=== PATIENT | female | born 1975 | race Caucasian/White ===

== ENCOUNTER → 2024-08-31 | Outpatient (CLI) | payer MEDICAID, SELFPAY ==
--- NOTE | 2024-08-31 11:00 | XR_ITS ---
Examination: Screening digital mammography, bilateral Computer aided detection 3-D breast Tomosynthesis, bilateral Date and time of exam: August 31, 2024 1122 hours Compared to mammograms dating to August 30, 2019 Indication: Screening Technique: Nonmagnified MLO, CC views of the breasts to been obtained, reconstructed from 3-D Tomosynthesis images. R2 computer aided detection program utilized for evaluation of suspicious masses and/or abnormal calcifications. 3-D Tomosynthesis images obtained. Findings: Scattered areas of fibroglandular density. Benign calcifications. 4 mm circumscribed nodule upper outer right breast IMPRESSION: BI-RADS Category 0: Incomplete: Need additional imaging evaluation 4 mm circumscribed nodule upper outer right breast, recommend follow-up spot tomographic views of this nodule as well as right breast sonography to evaluate the workup
== END | disposition home or self-care (01) ==
LOC: CDIM 10:59
PROVIDERS: Referring Provider Nurse Practitioner; Visit Provider Nurse Practitioner
DX: Z12.31 Encounter for screening mammogram for malignant neoplasm of breast (principal); N63.11 Unspecified lump in the right breast, upper outer quadrant
CPT/HCPCS: 77063; 77067

== ENCOUNTER 2024-09-24 19:55 | Emergency (ER) | payer MEDICAID, SELFPAY ==
[2024-09-24 19:55] VITALS: BMI 39.1
[2024-09-24 20:55] VITALS: BP 126/78; PULSE 72; RESP 18; TEMP 36.9; O2SAT 98
--- NOTE | 2024-09-24 21:05 | PD.EDRME ---
Rapid Medical Screening Exam RME Arrival date/time: 09/24/24 19:55 48 year old female present to ED for c/o of abdominal pain radiated to back I have greeted and performed a focused initial assessment of this patient. A comprehensive ED assessment and evaluation of the patient, analysis of all test results, and completion of the medical decision making process will be conducted by additional ED providers. Chief Complaint: Abdominal Pain Time Seen by Provider: 09/24/24 20:01 Vital signs: Vital Signs Temperature 98.5 F 09/24/24 20:55 Pulse Rate 72 09/24/24 20:55 Respiratory Rate 18 09/24/24 20:55 Blood Pressure 126/78 09/24/24 20:55 Pulse Oximetry (%) 98 09/24/24 20:55 Oxygen Delivery Method Room Air 09/24/24 20:55
[2024-09-24 21:35] LABS: Basophils # (Auto) 0.1 Thou/mm3 (0.0-0.2); Basophils % (Auto) 1 % (0-2.5); Eosinophils # (Auto) 0.4 Thou/mm3 (0.0-0.5); Eosinophils % (Auto) 3 % (0-10); Hematocrit 40.1 % (36.0-46.0); Hemoglobin 13.7 g/dL (12.0-16.0); Immature Granulocytes % (Auto) 1 % (0-0); Immature Granulocytes Auto 0.07 Thou/mm3 (0.00-0.00); Lymphocytes # (Auto) 2.5 Thou/mm3 (1.0-4.8); Lymphocytes % (Auto) 19 % (10-50); Mean Corpuscular HGB Conc 34.2 g/dl (31.0-37.0); Mean Corpuscular Hemoglobin 30.1 pg (25.0-35.0); Mean Corpuscular Volume 88 fL (80-100); Monocytes # (Auto) 0.5 Thou/mm3 (0.0-0.8); Monocytes % (Auto) 4 % (0-12); Neutrophils # (Auto) 9.9 Thou/mm3 (1.8-7.7); Neutrophils % (Auto) 73 % (37-80); Nucleated Red Blood Cell % 0 /100 WBC (0); Platelet Count 199 Thou/mm3 (140-440); RDW Standard Deviation 41.9 fL (36.4-46.3); Red Blood Count 4.55 Miln/mm3 (4.00-5.20); White Blood Count 13.5 Thou/mm3 (3.6-11.0)
--- NOTE | 2024-09-24 21:44 | XR_ITS ---
Examination: CT abdomen and pelvis without contrast. Coronal 3-D reconstructions. Sagittal 2-D reconstructions. Date and time of exam:September 24, 1999 2510.4 hours Indications: Left lower abdominal pain beginning one month ago CTDI: vol (mGy): 14.7 DLP: (mGycm): 853 Technique: Axial images of the abdomen have been obtained, 3 mm slice thickness Intravenous contrast material has not been administered. Low dose protocols were performed. One or more of the following dose reduction techniques were used; automated exposure control, adjustment of the mA and/or KV according to patient size, use of iterative reconstruction technique. Findings: Moderate hepatomegaly with fatty infiltration Mild splenomegaly No gallstones No pancreatic mass Mild bilateral renal parenchymal scar formation Normal appendix No bowel obstruction No diverticulitis No uterine or adnexal mass Contracted urinary bladder Moderate osteopenia Impression: Hepatosplenomegaly, fatty liver Mild bilateral renal parenchymal scar formation No renal or ureteral calculi, no hydronephrosis Normal appendix No diverticulitis or bowel obstruction
[2024-09-24 21:52] LABS: Alanine Aminotransferase 38 U/L (10-49); Albumin, Serum 4.6 gm/dL (3.5-5.0); Albumin/Globulin Ratio 1.6 (1.2-2.2); Alkaline Phosphatase 72 U/L (46-116); Anion Gap 8 (7-16); Aspartate Amino Transferase 26 U/L (0-34); BUN/Creatinine Ratio 9 Ratio (12-20); Bilirubin,Total 0.5 mg/dL (0.3-1.2); Blood Urea Nitrogen 7 mg/dL (9-23); Calcium 9.7 mg/dL (8.3-10.6); Calcium (Corrected) 9.7 mg/dL (8.5-10.1); Carbon Dioxide 27.6 mMol/L (20.0-31.0); Chloride 104 mMol/L (98-107); Creatinine (Component) 0.8 mg/dL (0.6-1.3); Estimated Creatinine Clearance 91.9 mL/min (>60); Globulin 2.9 gm/dL (2.3-3.5); Glucose 174 mg/dL (74-106); Lipase 58 U/L (12-53); Osmolality,Calculated 281 (275-295); Potassium 3.7 mMol/L (3.4-5.1); Sodium 140 mMol/L (136-145); Total Protein 7.5 gm/dL (5.7-8.2); eGFR > 60 See Note
[2024-09-24 22:00] LABS: HCG,Qualitative Serum Negative
[2024-09-24 22:25] LABS: Collection Type, Urine Voided; RBC,Urine 0 /hpf (0-3); WBC,Urine 0 /hpf (0-5)
[2024-09-24 22:43] LABS: Bilirubin,Urine Negative (Negative); Blood,Urine Negative (Negative); Clarity,Urine Clear (Clear/Hazy); Color,Urine Lt-Yellow (Lt Yel-Yel); Glucose, Urine 4+ (Negative); Ketones,Urine Negative (Negative); Leukocyte Esterase,Urine Negative (Negative); Nitrite,Urine Negative (Negative); Protein,Urine Trace (Neg - Trace); Specific Gravity,Urine 1.035 (1.001-1.035); Squamous Epithelial Cell,Urine 1 /hpf (0-5); Urobilinogen,Urine Negative mg/dL (0.0-1.0)
--- NOTE | 2024-09-24 22:57 | EDNOTE_ITS ---
ED Abdominal Pain RME/HPI General Chief Complaint: Abdominal Pain Stated complaint: LEFT ABDOMINAL PAIN Time seen by provider: 09/24/24 20:01 Arrival date/time: 09/24/24 19:55 48 year old female present to emergency room with c/o of LLQ pain that radiated to back for 1 month ago LOCATION: [facility] SEVERITY: Symptoms are described as being severe with limitations on activities of daily living QUALITY: Symptoms are described as being cramping CONTEXT: The patient is unable to identify any inciting events. DURATION/TIMING: The symptoms started approximately 1 month ago and have been waxing/waning but always present without ever completely resolving. ASSOCIATED SYMPTOMS: The patient is unable to identify any other associated symptoms. MODIFYING FACTORS: The patient is unable to identify any alleviating or aggravating symptoms. PERTINENT ROS: no fevers, no anorexia, no nausea or vomiting, no diarrhea, no ripping or tearing sensations, no syncope or presyncopal symptoms, denies trauma, denies genital pain no urgency,frequency, dysuria, vag bleeding REVIEW OF SYSTEMS: See History of Present Illness - with the exception of those mentioned in the history of present illness, all other systems reviewed and reported as negative GENERAL: In general the patient is awake, interactive, in an emergency department gurney. HEAD/EYES/EARS/NOSE/THROAT: normo-cephalic, atraumatic, mucus membranes are moist, anicteric, palpebral conjunctiva is pink, trachea is midline. CARDIOVASCULAR: regular rate and regular rhythm, no murmurs, heart sounds are not distant, strong pulses in all four extremities that are equal and symmetric bilateral upper and lower extremities, normal capillary refill. CHEST/PULMONARY: normal chest rise and fall, good air movement, clear to auscultation bilaterally, normal inspiratory to expiratory ratios without evidence of respiratory distress. NECK: No midline/Paraspinal tenderness, no step off ROM/Strenght intact No Kernig and bruzinski sign. No trauma ABDOMEN: soft, LLQ tenderness, no cva tenderness no masses appreciated BACK: normal range of motion without pain. NEUROLOGICAL: cranio-facial features are symmetric, moves all four extremities equally without obvious limitations or weakness. EXTREMITY: no tenderness to palpation over the long bones or large joints of the bilateral upper and lower extremities, no joint swelling, no joint erythema, no signs of trauma, no unilateral leg swelling and no peripheral edema. SKIN: warm, dry, well-perfused, no jaundice, no rash, no telangiectasias or petechia. PSYCH: calm, cooperative, no evidence of psychosis or agitation RME / HPI RME / HPI narrative: 09/24/24 19:55 48 year old female present to ED for c/o of abdominal pain radiated to back I have greeted and performed a focused initial assessment of this patient. A comprehensive ED assessment and evaluation of the patient, analysis of all test results, and completion of the medical decision making process will be conducted by additional ED providers. Related Data Home Medications ?Medication ?Instructions ?Recorded ?Confirmed aripiprazole 30 mg tablet (Abilify) 20 mg PO HS #0 tabs 08/06/17 09/28/20 lithium carbonate 300 mg capsule 900 mg PO HS 04/12/18 09/28/20 sitagliptin phosphate 100 mg 100 mg PO QDAY 04/24/18 09/28/20 tablet (Januvia) simvastatin 20 mg tablet 20 mg PO QPM 02/24/20 09/28/20 aripiprazole 10 mg tablet (Abilify) 10 mg PO QDAY 07/26/20 09/28/20 insulin glargine 100 unit/mL (3 34 unit subcut BID 07/26/20 09/28/20 mL) subcutaneous pen (Basaglar KwikPen U-100 Insulin) empagliflozin 25 mg tablet 25 mg PO QDAY 09/28/20 09/28/20 (Jardiance) insulin lispro 100 unit/mL 5 unit subcut TID 09/28/20 09/28/20 subcutaneous pen (Humalog KwikPen (U-100) Insulin) mirtazapine 15 mg tablet 15 mg PO QDAY 09/28/20 09/28/20 Previous Rx's ?Medication ?Instructions ?Recorded cephalexin 500 mg capsule (Keflex) 500 mg PO TID #14 caps 10/01/20 hydrocodone 10 mg-acetaminophen 1 tab PO Q6H PRN pain #30 tabs 10/01/20 325 mg tablet ([place]) Allergies Allergy/AdvReac Type Severity Reaction Status Date / Time albuterol Allergy Severe Anaphylaxis Verified 10/01/20 13:12 aspirin Allergy Severe Nose Bleed Verified 10/01/20 13:12 ibuprofen Allergy Severe Nose Bleed Verified 10/01/20 13:12 Course Course Course Narrative: Patient?s symptoms not typical for emergent causes of abdominal pain such as, but not limited to, appendicitis, abdominal aortic aneurysm, surgical biliary disease, pancreatitis, SBO, mesenteric ischemia, serious intra-abdominal bacterial illness. Presentation also not typical of gynecologic emergencies such as?TOA, Ovarian Torsion, PID. Not Ectopic. Doubt atypical ACS. Pt tolerating PO. Disposition: Patient will be discharged with strict return precautions and follow up with primary MD within 12-24 hours for further evaluation. Patient understands that this still may have an early presentation of an emergent medical condition such as appendicitis that will require a recheck. Quality Measures none Orders Category Date Time Status CT abdomen pelvis wo con Stat Exams 09/24/24 21:44 Completed CBC Stat Lab 09/24/24 21:17 Completed CMP [Comprehensive Metabolic Panel] Stat Lab 09/24/24 21:17 Completed HCG,Qualitative Serum Stat Lab 09/24/24 21:17 Completed Lipase Stat Lab 09/24/24 21:17 Completed UA [Urinalysis] Stat Lab 09/24/24 22:05 Completed traMADol HCL [Ultram] Med 09/24/24 23:00 Discontinued 50 mg PO X1 ONE Vital Signs Vital signs: Vital Signs Temperature 98.5 F 09/24/24 20:55 Pulse Rate 72 09/24/24 20:55 Respiratory Rate 18 09/24/24 20:55 Blood Pressure 126/78 09/24/24 20:55 Pulse Oximetry (%) 98 09/24/24 20:55 Oxygen Delivery Method Room Air 09/24/24 20:55 Abdominal Pain MDM Patient data External records reviewed:: [facility] previous records Clinical information provided by:: patient Social determinants that could affect healthcare access:: none Patient has the following chronic illnesses:: none How is presenting disease/condition affected by chronic disease/condition?: no chronic disease Evaluation data The following diagnostics were reviewed and interpreted by me:: lab results and radiology exam(s) Lab and/or radiology exams considered but not ordered:: none Interpretation Summary: Impression: Hepatosplenomegaly, fatty liver Mild bilateral renal parenchymal scar formation No renal or ureteral calculi, no hydronephrosis Normal appendix No diverticulitis or bowel obstruction CBC/CMP/URINE no acute findings Medications / Prescriptions Medications or Prescriptions considered but not ordered:: none Medication administrations:: Medication Administration History Discontinued Medications Tramadol HCl (Tramadol Hcl 50 Mg Tablet) 50 mg PO X1 ONE Stop: 09/24/24 23:01 none Consultations Consultation(s) initiated? (list below): No Diagnosis Differential diagnosis abdominal pain: abdominal pain, acute appendicitis, calc ulus of kidney, constipation, diverticulitis, gastroenteritis, pancreatitis and small bowel obstruction Most likely diagnosis given after review of the tests above:: abd pain Admission Indicated Admission indicated?: not indicated Admission Request Was there a request for admission?: No Disposition Plan Disposition Plan: Discharge Discharge Attestation Discharge Attestation: The patient and all family members were given an opportunity to ask questions and understood the discharge instructions. Discharge instructions specifically effects, indications for sooner follow up or return to the emergency department, and the expected course of current diagnosis. Patient condition: Stable Discharge Plan Plan Patient Disposition: HOME (Self Care) Health Concerns: Follow with PMD as directed Take tylenol as need Return to ED if sx worsen Prescriptions/Referrals Prescriptions/Med Rec: No Action aripiprazole [Abilify] 30 MG tablet 20 mg PO HS Qty: 0 lithium carbonate 300 mg Capsule 900 mg PO HS mirtazapine 15 mg Tablet 15 mg PO QDAY Jardiance 25 mg Tablet 25 mg PO QDAY insulin lispro [Humalog KwikPen Insulin] 100 unit/mL Insulin Pen 5 unit SUBCUT TID hydrocodone-acetaminophen [[place]] 10-325 mg tablet 1 tab PO Q6H MDD 3 PRN (Reason: pain) Qty: 30 0RF cephalexin [Keflex] 500 mg capsule 500 mg PO TID Qty: 14 0RF Januvia 100 mg Tablet 100 mg PO QDAY simvastatin 20 mg Tablet 20 mg PO QPM aripiprazole [Abilify] 10 mg Tablet 10 mg PO QDAY Basaglar KwikPen U-100 Insulin 100 unit/mL (3 mL) Insulin Pen 34 unit SUBCUT BID Referrals: Shree Vazquez([facility])MD [Primary Care Provider] - In 1 week Problem List Clinical Impression: Abdominal pain Patient/Caregiver Discharge Instructions Education Materials: Abdominal Pain Print Language: Turkish Stand Alone Forms: Tiff Award Info., Patient Portal Info Letter
[2024-09-24] MEDS: traMADol HCL 50 MG TABLET PO (23:59)
[2024-09-25 00:14] VITALS: BP 121/83; PULSE 70; RESP 16; TEMP 36.8; O2SAT 98
== END 2024-09-25 00:15 | disposition home or self-care (01) ==
PROVIDERS: Physician Assistant; Emergency Provider Emergency Medicine; PCP Family Medicine
DX: R10.32 Left lower quadrant pain (principal)
CPT/HCPCS: 36415; 74176; 80053; 81001; 83690; 84703; 85025; 99284; A9270

== ENCOUNTER 2024-09-26 13:15 | Emergency (ER) | payer MEDICAID, SELFPAY ==
[2024-09-26 13:27] VITALS: BP 118/76; PULSE 72; RESP 16; TEMP 36.8; O2SAT 97; BMI 39.4
--- NOTE | 2024-09-26 13:37 | XR_ITS ---
Examination: CT abdomen and pelvis without contrast. Coronal 3-D reconstructions. Sagittal 2-D reconstructions. Date and time of exam:September 26, 2024 1516 hours COMPARISON: September 24, 2024 INDICATIONS: Left-sided flank pain radiating to the back beginning 3 days ago CTDI: vol (mGy): 12.8 DLP: (mGycm): 766 Technique: Axial images of the abdomen have been obtained, 3 mm slice thickness Intravenous contrast material has not been administered. Low dose protocols were performed. One or more of the following dose reduction techniques were used; automated exposure control, adjustment of the mA and/or KV according to patient size, use of iterative reconstruction technique. Findings: No focal liver or splenic lesions Hepatomegaly 23 cm, splenomegaly AP dimension 14 cm No gallstones No pancreatic mass Moderate bilateral renal parenchymal scar formation No renal or ureteral calculi, no hydronephrosis Mild edema in the mesentery Aorta normal size No pericecal inflammatory change No bowel obstruction No diverticulitis Urinary bladder intact Anteverted uterus Moderate osteopenia IMPRESSION: Significant hepatosplenomegaly Moderate bilateral renal parenchymal scar formation No renal or ureteral calculi Mild edema in the mesentery fat, a nonspecific finding
--- NOTE | 2024-09-26 13:38 | PD.EDABDPN ---
ED Abdominal Pain RME/HPI General Chief Complaint: Abdominal Pain Stated complaint: LEFT SIDED ABD PAIN RAD TO BACK, WEAKNESS Time seen by provider: 09/26/24 13:46 Arrival date/time: 09/26/24 13:15 48-year-old female with a history of type 2 diabetes, hypertension, hyperlipidemia presents to the emergency room with a chief complaint of left-sided flank pain and left-sided lower abdominal pain x 2 days. Source: patient Mode of arrival: ambulatory Limitations: no limitations Related Data Home Medications ?Medication ?Instructions ?Recorded ?Confirmed aripiprazole 30 mg tablet (Abilify) 20 mg PO HS #0 tabs 08/06/17 09/28/20 lithium carbonate 300 mg capsule 900 mg PO HS 04/12/18 09/28/20 sitagliptin phosphate 100 mg 100 mg PO QDAY 04/24/18 09/28/20 tablet (Januvia) simvastatin 20 mg tablet 20 mg PO QPM 02/24/20 09/28/20 aripiprazole 10 mg tablet (Abilify) 10 mg PO QDAY 07/26/20 09/28/20 insulin glargine 100 unit/mL (3 34 unit subcut BID 07/26/20 09/28/20 mL) subcutaneous pen (Basaglar KwikPen U-100 Insulin) empagliflozin 25 mg tablet 25 mg PO QDAY 09/28/20 09/28/20 (Jardiance) insulin lispro 100 unit/mL 5 unit subcut TID 09/28/20 09/28/20 subcutaneous pen (Humalog KwikPen (U-100) Insulin) mirtazapine 15 mg tablet 15 mg PO QDAY 09/28/20 09/28/20 Previous Rx's ?Medication ?Instructions ?Recorded cephalexin 500 mg capsule (Keflex) 500 mg PO TID #14 caps 10/01/20 hydrocodone 10 mg-acetaminophen 1 tab PO Q6H PRN pain #30 tabs 10/01/20 325 mg tablet (Millinocket) Allergies Allergy/AdvReac Type Severity Reaction Status Date / Time albuterol Allergy Severe Anaphylaxis Verified 10/01/20 13:12 aspirin Allergy Severe Nose Bleed Verified 10/01/20 13:12 ibuprofen Allergy Severe Nose Bleed Verified 10/01/20 13:12 Review of Systems Review of Systems Systems Reviewed: All systems reviewed, normal except as documented Constitutional Constitutional: Reports system reviewed and no additional complaints, except as documented, Denies fatigue, Denies fever(s), Denies headache(s) and Denies weakness Eyes Eyes: Reports system reviewed and no additional complaints, except as documented, Denies blurry vision and Denies change in vision ENT Ears, Nose, Mouth, and Throat: Reports system reviewed and no additional complaints, except as documented, Denies otalgia, Denies headache(s), Denies nasal congestion, Denies throat swelling and Denies vertigo Cardiovascular Cardiovascular: Reports system reviewed and no additional complaints, except as documented, Denies chest pain, Denies dyspnea and Denies dyspnea on exertion Respiratory Respiratory: Reports system reviewed and no additional complaints, except as documented, Denies chest congestion, Denies cough, Denies dyspnea, Denies dyspnea on exertion and Denies wheezing Gastrointestinal Gastrointestinal: Reports system reviewed and no additional complaints, except as documented, Reports abdominal pain, Reports cramping, Denies nausea and Denies vomiting Genitourinary Genitourinary: Reports system reviewed and no additional complaints, except as documented Musculoskeletal Musculoskeletal: Reports system reviewed and no additional complaints, except as documented, Reports arthralgias and Reports back pain Integumentary/Breasts Skin/Breast: Reports system reviewed and no additional complaints, except as documented and Denies wounds Neurologic Neurologic: Reports system reviewed and no additional complaints, except as documented, Denies confusion, Denies headache(s), Denies lack of coordination, Denies vertigo and Denies weakness Psychiatric Psychiatric: Reports system reviewed and no additional complaints, except as documented, Denies anxiety, Denies confusion, Denies depression, Denies paranoia, Denies suicidal ideation and Denies tactile hallucinations Endocrine Endocrine: Reports system reviewed and no additional complaints, except as documented and Denies fatigue Hematologic/Lymphatic Hematologic/Lymphatic: Reports system reviewed and no additional complaints, except as documented and Denies lymphadenopathy Allergic/Immunologic Allergic/Immunologic: Reports system reviewed and no additional complaints, except as documented, Denies throat swelling, Denies urticaria and Denies wheezing Past Medical History Past Medical History NEUROLOGIC: Negative Neurological Disorders or Seizures CARDIAC: Positive Cardiac Disorders and Hypercholesterolemia; Negative Congestive Heart Failure, Edema, Cellulitis or Varicose Veins RESPIRATORY: Negative Chronic Obstructive Pulmonary Disease (COPD), Asthma, Tuberculosis, Pulmonary Embolism or Sleep Apnea GASTROINTESTINAL: Positive Hiatal Hernia; Negative Gastrointestinal Disorders or Hepatitis GENITOURINARY: Negative Genitourinary Disorders or Renal Disease REPRODUCTIVE: Positive Previous Pregnancies MUSCULOSKELETAL: Negative Musculoskeletal Disorders ENDOCRINE: Positive Endocrine Disorders and Diabetes Mellitus Type 2; Negative Diabetes Mellitus Type 1 HEMATOLOGIC: Negative Blood Disorders or Sickle Cell Disease PSYCHO/SOCIAL: Positive Bipolar Disorder, Depression, Anxiety, Depression and Post Traumatic Stress Disorder OTHER HISTORY: Positive Autoimmune Disease, Chicken Pox and Measles; Negative Hospitalization, Shingles, Falls, Blood Transfusions, Blood Transfusion Reaction, Anesthesia Reactions, Chemotherapy, Radiation Therapy, MRSA, Mumps or Cancer Family History FAMILY HISTORY: Positive Family Respiratory Disorders, Family Cardiac Disorders, Family Gastrointestinal Problems, Family Cancer and Family Surgery; Negative Family Psychiatric Problems or Family Anesthesia Reaction Surgical History SURGICAL: Positive Section; Negative Cardiac Surgery, Pacemaker or Tubal Ligation Social History SMOKING STATUS: Never smoker SUBSTANCE USE: does not use ED Exam General Limitations: Present no limitations General appearance: Present alert and in no apparent distress Head Head exam: Present atraumatic Eye Eye exam: Present normal appearance, PERRL and EOMI ENT ENT exam: Present normal exam, normal oropharynx and mucous membranes moist Neck Neck exam: Present normal inspection, full ROM and trachea midline Chest Chest inspection: Present normal inspection and symmetric chest wall rise Respiratory Respiratory exam: Present normal lung sounds bilaterally Cardiovascular Cardiovascular exam: Present regular rate, normal rhythm and normal heart sounds Abdominal Exam Abdominal exam: Present soft, tenderness and normal bowel sounds Abdominal tenderness: Present LLQ and mild Extremities Exam Extremities exam: Present normal inspection and full ROM Back Exam Back exam: Present normal inspection, full ROM and CVA tenderness (L) Neurological Exam Neurological exam: Present alert, oriented X3 and CN II-XII intact Psychiatric Psychiatric exam: Present normal affect and normal mood Skin Skin exam: Present warm, dry, intact and normal color Course Quality Measures none Orders Category Date Time Status CT abdomen pelvis wo con Stat Exams 09/26/24 13:37 Completed CBC Stat Lab 09/26/24 13:46 Completed CMP [Comprehensive Metabolic Panel] Stat Lab 09/26/24 13:46 Completed HCG Qualitative,Urine Stat Lab 09/26/24 13:55 Completed Lipase Stat Lab 09/26/24 13:46 Completed UA [Urinalysis] Stat Lab 09/26/24 13:55 Completed Urine Culture Stat Lab 09/26/24 13:55 Received HYDROcodone*/APAP 5/325 [[place] 5/325] Med 09/26/24 13:37 Discontinued 1 tab PO X1 ONE Vital Signs Vital signs: Vital Signs Temperature 98.3 F 09/26/24 13:27 Pulse Rate 72 09/26/24 13:27 Respiratory Rate 16 09/26/24 13:27 Blood Pressure 118/76 09/26/24 13:27 Pulse Oximetry (%) 97 09/26/24 13:27 Oxygen Delivery Method Room Air 09/26/24 13:27 O2 saturation 97% within normal limits Abdominal Pain MDM MDM Narrative MDM Narrative:: 48-year-old female with a history of type 2 diabetes, hypertension, hyperlipidemia presents to the emergency room with a chief complaint of left-sided flank pain and left-sided lower abdominal pain x 2 days. Clinically the patient appears nontoxic and in no apparent distress. Physical examination shows left-sided CVA tenderness as well as left-sided lower abdominal pain and tenderness. CT of the abdomen and pelvis was completed and was negative for any acute findings. CBC CMP were negative for leukocytosis or any acute findings. Urinalysis was normal. Patient was discharged and educated to follow-up with her primary care provider and return to the emergency room for any evidence of worsening signs or symptoms Patient data External records reviewed:: [facility] previous records Clinical information provided by:: patient Social determinants that could affect healthcare access:: none Patient has the following chronic illnesses:: No chronic illness How is presenting disease/condition affected by chronic disease/condition?: no chronic disease Evaluation data The following diagnostics were reviewed and interpreted by me:: lab results and radiology exam(s) Lab and/or radiology exams considered but not ordered:: Labs and radiology exams considered and ordered Interpretation Summary: CT abdomen and pelvis-Findings: No focal liver or splenic lesions Hepatomegaly 23 cm, splenomegaly AP dimension 14 cm No gallstones No pancreatic mass Moderate bilateral renal parenchymal scar formation No renal or ureteral calculi, no hydronephrosis Mild edema in the mesentery Aorta normal size No pericecal inflammatory change No bowel obstruction No diverticulitis Urinary bladder intact Anteverted uterus Moderate osteopenia IMPRESSION: Significant hepatosplenomegaly Moderate bilateral renal parenchymal scar formation No renal or ureteral calculi Mild edema in the mesentery fat, a nonspecific finding Medications / Prescriptions Medications or Prescriptions considered but not ordered:: Medication given Medication administrations:: Medication Administration History Discontinued Medications Hydrocodone Bitart/Acetaminophen (Hydrocodone/Apap 5/325 Tablet) 1 tab PO X1 ONE Stop: 09/26/24 13:38 Last Admin: 09/26/24 14:11 Dose: 1 tab Documented By: Medication given Consultations Consultation(s) initiated? (list below): No Diagnosis Differential diagnosis abdominal pain: abdominal pain, calculus of kidney, diverticulitis, gastroenteritis and other (Left-sided flank pain) Most likely diagnosis given after review of the tests above:: Flank pain Admission Indicated Admission indicated?: not indicated Admission Request Was there a request for admission?: No Disposition Plan Disposition Plan: Discharge Discharge Attestation Discharge Attestation: The patient and all family members were given an opportunity to ask questions and understood the discharge instructions. Discharge instructions specifically effects, indications for sooner follow up or return to the emergency department, and the expected course of current diagnosis. Patient condition: Stable Discharge Plan Plan Patient Disposition: HOME (Self Care) Disposition Comment: Stable Prescriptions/Referrals Prescriptions/Med Rec: No Action aripiprazole [Abilify] 30 MG tablet 20 mg PO HS Qty: 0 lithium carbonate 300 mg Capsule 900 mg PO HS mirtazapine 15 mg Tablet 15 mg PO QDAY Jardiance 25 mg Tablet 25 mg PO QDAY insulin lispro [Humalog KwikPen Insulin] 100 unit/mL Insulin Pen 5 unit SUBCUT TID hydrocodone-acetaminophen [[place]] 10-325 mg tablet 1 tab PO Q6H MDD 3 PRN (Reason: pain) Qty: 30 0RF cephalexin [Keflex] 500 mg capsule 500 mg PO TID Qty: 14 0RF Januvia 100 mg Tablet 100 mg PO QDAY simvastatin 20 mg Tablet 20 mg PO QPM aripiprazole [Abilify] 10 mg Tablet 10 mg PO QDAY Basaglar KwikPen U-100 Insulin 100 unit/mL (3 mL) Insulin Pen 34 unit SUBCUT BID Referrals: Toña Villegas FNP [Primary Care Provider] - In 1 week Problem List Clinical Impression: Acute flank pain Patient/Caregiver Discharge Instructions Education Materials: ED Flank Pain, Uncertain Cause Additional Instructions: Please follow-up with your primary care provider in the next [address] of your abdomen and pelvis was completed today and was negative for any stones or acute findings. For any evidence of worsening signs or symptoms please return to the emergency room immediately Print Language: Czech Stand Alone Forms: Tiff Award Info., Patient Portal Info Letter SIENNA/GAS TRANSFER OPERATOR Supervising Physician PA/GAS TRANSFER OPERATOR Supervising Physician: Dr Mckenna
[2024-09-26 13:56] LABS: Basophils # (Auto) 0.1 Thou/mm3 (0.0-0.2); Basophils % (Auto) 1 % (0-2.5); Eosinophils # (Auto) 0.4 Thou/mm3 (0.0-0.5); Eosinophils % (Auto) 3 % (0-10); Hematocrit 38.6 % (36.0-46.0); Hemoglobin 13.1 g/dL (12.0-16.0); Immature Granulocytes % (Auto) 0 % (0-0); Immature Granulocytes Auto 0.05 Thou/mm3 (0.00-0.00); Lymphocytes # (Auto) 2.3 Thou/mm3 (1.0-4.8); Lymphocytes % (Auto) 19 % (10-50); Mean Corpuscular HGB Conc 33.9 g/dl (31.0-37.0); Mean Corpuscular Hemoglobin 30.1 pg (25.0-35.0); Mean Corpuscular Volume 89 fL (80-100); Monocytes # (Auto) 0.5 Thou/mm3 (0.0-0.8); Monocytes % (Auto) 4 % (0-12); Neutrophils % (Auto) 73 % (37-80); Nucleated Red Blood Cell % 0 /100 WBC (0); Platelet Count 195 Thou/mm3 (140-440); RDW Standard Deviation 42.6 fL (36.4-46.3); Red Blood Count 4.35 Miln/mm3 (4.00-5.20); White Blood Count 12.3 Thou/mm3 (3.6-11.0)
[2024-09-26] MEDS: HYDROcodone/APAP 5/325 TABLET 1 TAB PO (14:11)
[2024-09-26 14:27] LABS: Alanine Aminotransferase 39 U/L (10-49); Albumin, Serum 4.5 gm/dL (3.5-5.0); Albumin/Globulin Ratio 1.8 (1.2-2.2); Alkaline Phosphatase 63 U/L (46-116); Anion Gap 8 (7-16); Aspartate Amino Transferase 29 U/L (0-34); BUN/Creatinine Ratio 10 Ratio (12-20); Bilirubin,Total 0.4 mg/dL (0.3-1.2); Blood Urea Nitrogen 8 mg/dL (9-23); Calcium 9.7 mg/dL (8.3-10.6); Calcium (Corrected) 9.7 mg/dL (8.5-10.1); Carbon Dioxide 28.1 mMol/L (20.0-31.0); Chloride 101 mMol/L (98-107); Creatinine (Component) 0.8 mg/dL (0.6-1.3); Estimated Creatinine Clearance 95.9 mL/min (>60); Globulin 2.5 gm/dL (2.3-3.5); Glucose 198 mg/dL (74-106); Lipase 42 U/L (12-53); Osmolality,Calculated 278 (275-295); Potassium 4.1 mMol/L (3.4-5.1); Sodium 137 mMol/L (136-145); eGFR > 60 See Note
[2024-09-26 14:41] LABS: Collection Type, Urine Clean Catch
[2024-09-26 14:49] LABS: HCG Qualitative,Urine Negative
[2024-09-26 14:50] LABS: Bilirubin,Urine Negative (Negative); Blood,Urine Negative (Negative); Clarity,Urine Clear (Clear/Hazy); Color,Urine Colorless (Lt Yel-Yel); Glucose, Urine 4+ (Negative); Ketones,Urine Negative (Negative); Leukocyte Esterase,Urine Negative (Negative); Nitrite,Urine Negative (Negative); Protein,Urine Negative (Neg - Trace); RBC,Urine 1 /hpf (0-3); Specific Gravity,Urine 1.022 (1.001-1.035); Squamous Epithelial Cell,Urine < 1 /hpf (0-5); Urobilinogen,Urine Negative mg/dL (0.0-1.0); WBC,Urine 1 /hpf (0-5)
== END 2024-09-26 16:55 | disposition home or self-care (01) ==
PROVIDERS: Nurse Practitioner Family; Emergency Provider Emergency Medicine; PCP Nurse Practitioner
DX: R16.2 Hepatomegaly with splenomegaly, not elsewhere classified (principal); N28.89 Other specified disorders of kidney and ureter; R60.9 Edema, unspecified
CPT/HCPCS: 36415; 74176; 80053; 81001; 81025; 83690; 85025; 87086; 99284; A9270

== ENCOUNTER → 2024-10-21 | Outpatient (CLI) | payer MEDICAID, SELFPAY ==
--- NOTE | 2024-10-21 13:00 | XR_ITS ---
Examination: Breast ultrasound, unilateral, right complete Date and time of exam: October 21, 2024 1316 hours INDICATIONS: Mammogram August 31, 2024 4 mm circumscribed nodule upper outer right breast Technique: Real-time green scale ultrasonographic imaging performed right breast including all 4 quadrants as well as nipple retroareolar and axillary region. Findings: No cystic or solid mass IMPRESSION: BI-RADS Category 1: Negative study
--- NOTE | 2024-10-21 13:30 | XR_ITS ---
Examination: Diagnostic digital mammography, unilateral, right Computer aided detection 3-D breast Tomosynthesis, unilateral Date and time of exam: October 21, 2024 1324 hours INDICATIONS: Mammogram August 31, 2024 4 mm nodule upper outer right breast Technique: Nonmagnified MLO, CC views of the right breast have been obtained, reconstructed from 3-D Tomosynthesis images. R2 computer aided detection program utilized for evaluation of suspicious masses and/or abnormal calcifications. 3-D Tomosynthesis images obtained. Findings: Scattered areas of fibroglandular density No suspicious nodule is depicted on the spot compression views Impression: BI-RADS category 2: Benign findings Return to yearly follow-up mammography
== END | disposition home or self-care (01) ==
PROVIDERS: PCP Nurse Practitioner; Referring Provider Nurse Practitioner; Visit Provider Nurse Practitioner
DX: R92.321 Mammographic fibroglandular density, right breast (principal)
CPT/HCPCS: 76641; 77061; 77065; G0279

== ENCOUNTER → 2024-11-08 | Outpatient (CLI) | payer MEDICAID, SELFPAY ==
--- NOTE | 2024-11-08 11:30 | XR_ITS ---
Examination: Abdomen sonogram, Limited Date and time of exam: November 08, 2024 1130 hours INDICATIONS: Umbilical pain beginning one month ago Technique: Real-time green scale transabdominal sonographic images of the upper abdomen obtained. Findings: No hernia defect noted IMPRESSION: No hernia defect noted
== END | disposition home or self-care (01) ==
LOC: CDIM 11:19
PROVIDERS: Referring Provider Nurse Practitioner; Visit Provider Nurse Practitioner
DX: R10.33 Periumbilical pain (principal)
CPT/HCPCS: 76705

== ENCOUNTER → 2024-12-13 | Outpatient (CLI) | payer MEDICAID, SELFPAY ==
--- NOTE | 2024-12-13 09:29 | XR_ITS ---
Examination: Hand, left 3 views Technique: Hand AP, oblique, lateral 3 views Date and time of exam: December 13, 2024 1038 hours INDICATIONS: Left third digit pain and locking one month FINDINGS: Moderate duct articular bone demineralization No acute fracture No cortical bone destruction No erosive or other significant arthritic change IMPRESSION: No erosive or other significant arthritic change
== END | disposition home or self-care (01) ==
LOC: CDIM 09:26
PROVIDERS: PCP Nurse Practitioner; Referring Provider Nurse Practitioner; Visit Provider Nurse Practitioner
DX: M65.332 Trigger finger, left middle finger (principal)
CPT/HCPCS: 73130

== ENCOUNTER 2025-01-20 09:12 | Outpatient (RCR) | payer MEDICAID, SELFPAY ==
--- NOTE | 2025-01-20 10:00 | XR_ITS ---
Examination: BABAR, hepatobiliary radioisotope scan Gallbladder ejection fraction study. Date and time of exam: January 20, 2025 0958 hours INDICATIONS: Sharp right upper abdominal pain radiating to the back beginning August 2024 Technique: 5.9 mCi of 99M Hepatolite administered. Serial imaging then obtained from immediate through 60 minutes. 2.0 mcg selective catheter Kinevac administered for gallbladder ejection fraction study. Findings: Radioisotope activity within the liver is reasonably homogenous. Gallbladder, common bile duct small bowel activity noted Impression: Gallbladder activity Normal gallbladder ejection fraction 68%, normal greater than 35%
== END 2025-01-25 23:59 | disposition home or self-care (01) ==
LOC: SNUC 09:12
PROVIDERS: PCP Nurse Practitioner; Referring Provider Nurse Practitioner; Visit Provider Nurse Practitioner
DX: R10.9 Unspecified abdominal pain (principal)
CPT/HCPCS: 78227; A9537; J2805

== ENCOUNTER 2025-01-24 08:40 | Day surgery (SDC) | payer MEDICAID, SELFPAY ==
[2025-01-23 10:51] LABS: HCG Qualitative,Urine Negative
[2025-01-23 13:56] VITALS: BMI 39.2
[2025-01-24] VITALS (8 sets, daily range): BP systolic 121–185; BP diastolic 78–103; PULSE 53–69; RESP 11–23; TEMP 36.7; O2SAT 93–99; BMI 39.9
[2025-01-24] MEDS: MIDAZOLAM INJ 1 MG/ML VIAL 2 ML (ASD USE ONLY) 2 MG IV (10:33)
[2025-01-24] MEDS: fentaNYL CIT INJ 50 mCg/ML AMP 2ML (ASD USE ONLY) IV (10:34)
[2025-01-24] MEDS: RINGERS LACTATED 1000 ML 1,000 ML 20 ML IV (10:34)
[2025-01-24] MEDS: DiphenhydrAMINE INJ 50 MG/ML VIAL 25 MG IV (10:34)
== END 2025-01-24 11:10 | disposition home or self-care (01) ==
PROVIDERS: PCP Nurse Practitioner; Referring Provider Internal Medicine Gastroenterology; Visit Provider Internal Medicine Gastroenterology
PROC: (CPT 43239; principal; 2025-01-24 10:30)
DX: K29.70 Gastritis, unspecified, without bleeding (principal); K44.9 Diaphragmatic hernia without obstruction or gangrene; E78.5 Hyperlipidemia, unspecified; E11.9 Type 2 diabetes mellitus without complications; F31.9 Bipolar disorder, unspecified; E88.810 Metabolic syndrome
CPT/HCPCS: 43239; 81025; J1200; J2250; J3010; J7120

== ENCOUNTER 2025-01-26 10:25 | Day surgery (SDC) | payer MEDICAID, SELFPAY ==
[2025-01-25 14:52] VITALS: BMI 39.2
[2025-01-26] VITALS (12 sets, daily range): BP systolic 110–162; BP diastolic 70–97; PULSE 49–61; RESP 12–20; TEMP 36.5–36.7; O2SAT 97–100; BMI 39.6
[2025-01-26] MEDS: MIDAZOLAM INJ 1 MG/ML VIAL 2 ML (ASD USE ONLY) 2 MG IV (11:58)
[2025-01-26] MEDS: DiphenhydrAMINE INJ 50 MG/ML VIAL 25 MG IV (11:58)
[2025-01-26] MEDS: fentaNYL CIT INJ 50 mCg/ML AMP 2ML (ASD USE ONLY) IV (11:58)
[2025-01-26] MEDS: RINGERS LACTATED 1000 ML 1,000 ML 125 ML IV (11:58)
== END 2025-01-26 13:20 | disposition home or self-care (01) ==
PROVIDERS: PCP Nurse Practitioner; Referring Provider Internal Medicine Gastroenterology; Visit Provider Internal Medicine Gastroenterology
PROC: 0DJD8ZZ Inspection of Lower Intestinal Tract, Via Natural or Artificial Opening Endoscopic (ICD-10-PCS; CPT 45378; principal; 2025-01-26 10:00)
DX: D12.2 Benign neoplasm of ascending colon (principal); K52.9 Noninfective gastroenteritis and colitis, unspecified; K64.8 Other hemorrhoids
CPT/HCPCS: 45385; 45380; A4217; A4649; J1200; J2250; J3010; J7120

== ENCOUNTER 2025-05-30 20:33 | Emergency (ER) | payer MEDICAID, SELFPAY ==
[2025-05-30 20:42] VITALS: PULSE 76; O2SAT 99
[2025-05-30 20:52] VITALS: BP 116/90; PULSE 74; RESP 19; TEMP 37.2; O2SAT 98
[2025-05-30 20:53] VITALS: BP 116/90; PULSE 64; RESP 19; TEMP 37.3; O2SAT 97
--- NOTE | 2025-05-30 21:06 | XR_ITS ---
Examination: AP chest single view Technique one AP portable upright chest single view Date and time: May 30, 2025, 2135 hrs., Comparison September 22, 2023. Indications: Chest pain today. Findings: Mild prominence left ventricle. Moderate vascular congestion. No lobar pneumonia or pulmonary edema. Impression: Moderate vascular congestion.
--- NOTE | 2025-05-30 21:06 | PD.EDADULT ---
ED General RME/HPI General Chief complaint: Chest Pain Stated complaint: CHEST PAIN Time Seen by Provider: 05/30/25 20:58 Arrival date/time: 05/30/25 20:33 CC: Chest pain HPI left anterior chest pain sharp in nature sharp intermittent episodes 5-6 for the past 3 days followed by lingering chest pressure. Patient notes the sharp pain is reproducible with palpation denies cough fever chills shortness of breath difficulty breathing no prior history of similar events. Does not have a cardiac history. Is on medication for hyperlipidemia. Currently the patient has chest pressure but no chest pain Related Data Home Medications ?Medication ?Instructions ?Recorded ?Confirmed lithium carbonate 300 mg capsule 900 mg PO HS 04/12/18 01/26/25 simvastatin 20 mg tablet 20 mg PO QPM 02/24/20 01/26/25 deutetrabenazine 42 mg 42 mg PO DAILY Mouth movements 01/23/25 01/26/25 tablet,extended release 24 hr (Austedo XR) empagliflozin 12.5 mg-metformin 1 tab PO BID Diabetic 01/23/25 01/26/25 1,000 mg tablet (Synjardy) sertraline 200 mg capsule 200 mg PO DAILY Depression 01/23/25 01/26/25 Allergies Allergy/AdvReac Type Severity Reaction Status Date / Time albuterol Allergy Severe Anaphylaxis Verified 01/26/25 10:43 aspirin Allergy Severe Nose Bleed Verified 01/26/25 10:43 ibuprofen Allergy Severe Nose Bleed Verified 01/26/25 10:43 Review of Systems Review of Systems Narrative Review of Systems: GEN: No fever, no chills, no weight loss EYES: No discharge, no visual changes, no pain HEENT: No ear pain, no congestion, no sore throat PULM: No shortness of breath, no cough, no congestion CV: + chest pain, no dyspnea on exertion, no palpitations GI: No nausea, no vomiting, no diarrhea, no pain, no constipation : No frequency, no urgency, no dysuria MUSC/SKEL: No joint pain, no back pain SKIN: No rash PSYCH: No hallucinations, no depression HEME/LYMPH: No easy bleeding or bruising tendencies NEURO: No weakness, no headache Past Medical History Past Medical History NEUROLOGIC: Positive Neurological Disorders and Migraine; Negative Seizures CARDIAC: Positive Cardiac Disorders and Hypercholesterolemia; Negative Congestive Heart Failure, Edema, Cellulitis or Varicose Veins RESPIRATORY: Negative Chronic Obstructive Pulmonary Disease (COPD), Asthma, Tuberculosis, Pulmonary Embolism or Sleep Apnea GASTROINTESTINAL: Positive Hiatal Hernia; Negative Gastrointestinal Disorders or Hepatitis GENITOURINARY: Negative Genitourinary Disorders or Renal Disease REPRODUCTIVE: Positive Previous Pregnancies MUSCULOSKELETAL: Negative Musculoskeletal Disorders ENT: Positive Blind (right eye) ENDOCRINE: Positive Endocrine Disorders and Diabetes Mellitus Type 2 (synjardy); Negative Diabetes Mellitus Type 1 HEMATOLOGIC: Negative Blood Disorders or Sickle Cell Disease PSYCHO/SOCIAL: Positive Bipolar Disorder, Depression, Anxiety, Depression and Post Traumatic Stress Disorder OTHER HISTORY: Positive Autoimmune Disease, Chicken Pox and Measles; Negative Hospitalization, Shingles, Falls, Blood Transfusions, Blood Transfusion Reaction, Anesthesia Reactions, Chemotherapy, Radiation Therapy, MRSA, Mumps or Cancer Family History FAMILY HISTORY: Positive Family Respiratory Disorders, Family Cardiac Disorders, Family Gastrointestinal Problems, Family Cancer and Family Surgery; Negative Family Psychiatric Problems or Family Anesthesia Reaction Surgical History SURGICAL: Positive Section; Negative Cardiac Surgery, Pacemaker or Tubal Ligation Social History SMOKING STATUS: Never smoker SUBSTANCE USE: does not use ED Exam Narrative Physical exam: [General: Obese not in acute distress Head normocephalic HEENT: Eyes pupils are PERRLA EOMs are intact mouth tooth loose, pink moist membranes uvula is midline swallow symmetrical phonation is normal. Nose no rhinorrhea or otorrhea. All of the subsystems of HEENT are within acceptable limits Neck is supple nontender Chest equal chest rise nontender to palpation Respiratory: Clear to auscultation no wheezes crackles or rubs CV: Rate rhythm is regular no murmurs rubs or clicks Abdomen is distended secondary to body habitus soft nontender no masses positive bowel sounds all 4 quadrants Back: No CVA tenderness no spinous process tenderness from cervical spine thoracic and lumbar spine Skin: Intact no petechiae rash induration ulceration or crepitus Extremities: Moving all extremity against resistance cap refill less than 2 seconds neurosensory intact. No lower extremity edema Neuro: Awake alert oriented x3 Glascow coma 15 no focal deficits] Course Course Course Narrative: Troponin is negative patient has a heart score of 1 will discharge the patient home no Quality Measures none Orders Category Date Time Status EKG (ED ONLY) *Do not use* NOW Care 05/30/25 20:56 Active EKG (ED Only) Stat Exams 05/30/25 20:56 Ordered XR chest 1V Stat Exams 05/30/25 21:06 Completed B-Type Natriuretic Peptide Stat Lab 05/30/25 20:40 Completed CBC Stat Lab 05/30/25 20:40 Completed Comprehensive Metabolic Panel Stat Lab 05/30/25 20:40 Completed Drug Screen,Urine Stat Lab 05/30/25 21:53 Received LDH (Lactate Dehydrogenase) Stat Lab 05/30/25 20:40 Completed [place] Stat Lab 05/30/25 20:40 Completed Magnesium Stat Lab 05/30/25 20:40 Completed Partial Thromboplastin Time Stat Lab 05/30/25 20:40 Completed Prothrombin Time with INR Stat Lab 05/30/25 20:40 Completed Troponin I Stat Lab 05/30/25 20:40 Completed Urinalysis, C/S if Indicated Stat Lab 05/30/25 21:53 Received Vital Signs Vital signs: Vital Signs Temperature 99 F 05/30/25 20:52 Pulse Rate 74 05/30/25 20:52 Respiratory Rate 19 05/30/25 20:52 Blood Pressure 116/90 H 05/30/25 20:52 Pulse Oximetry (%) 98 05/30/25 20:52 Oxygen Delivery Method Room Air 05/30/25 20:52 Discharge Plan Plan Patient Disposition: HOME (Self Care) Patient condition on transfer: Stable Prescriptions/Referrals Prescriptions/Med Rec: No Action lithium carbonate 300 mg Capsule 900 mg PO HS simvastatin 20 mg Tablet 20 mg PO QPM sertraline 200 mg capsule 200 mg PO DAILY [place] XR 42 mg tablet extended release 24 hr 42 mg PO DAILY Synjardy 12.5-1,000 mg tablet 1 tab PO BID Problem List Clinical Impression: Chest pain Patient/Caregiver Discharge Instructions Other Activity Instructions:: Follow-up with your primary care doctor if there is a worsening of symptoms return to the emergency room for further evaluation. Education Materials: ED Chest Pain, Uncertain Cause Print Language: Slovak Stand Alone Forms: Tiff Award Info., Work/School Release, Patient Portal Info Letter PA/DIGITAL EXPERIENCE MANAGER Supervising Physician PA/DIGITAL EXPERIENCE MANAGER Supervising Physician: Cristo Santacruz ENP [facility] Clinical Information Provided by patient and EMS Medical Records Reviewed [facility] and EMS Meds/Rx Considered, not Ordered None Labs/Rad/Tests considered, not Ordered None Chronic Illness/Social Conditions Add or document further as needed: Hyperlipidemia. Schizophrenia EKG EKG Interpretation narrative: EKG performed at 2056 shows a ventricular rate of 64 DE interval 163 QRS of 93 QTc of 426 the sinus rhythm no prolonged QT interval no significant ST segment changes. When compared to an old EKG of July 2020 which is tachycardic the morphology is unchanged.[id number] Lab Interpretation Labs: interpreted by me Lab(s) interpretation(s): CBC shows no significant leukocytosis no anemia thrombocytopenia Coags within acceptable limits CMP shows no significant electrolyte imbalances renal impairment glucose at 230. No T. bili elevation Troponin is undetectable BNP is negative. [place] is subtherapeutic at 0.20. Imaging Imaging interpretation: interpreted by me Provider imaging interpretation(s): Chest x-ray as interpreted by radiologist shows a mild vascular congestion. Diagnosis Differential diagnosis: ACS SC pneumonia Most likely dx, and/or detailed dx discussion: With a heart score of 1 patient to be discharged home there is no acute finding. Patient to follow-up with outpatient basis Dispositon Disposition: Discharge Home
[2025-05-30 21:23] LABS: Basophils # (Auto) 0.1 Thou/mm3 (0.0-0.2); Basophils % (Auto) 1 % (0-2.5); Eosinophils # (Auto) 0.3 Thou/mm3 (0.0-0.5); Eosinophils % (Auto) 2 % (0-10); Hematocrit 40.1 % (36.0-46.0); Hemoglobin 13.7 g/dL (12.0-16.0); Immature Granulocytes Auto 0.05 Thou/mm3 (0.00-0.00); Lymphocytes # (Auto) 2.2 Thou/mm3 (1.0-4.8); Lymphocytes % (Auto) 20 % (10-50); Mean Corpuscular HGB Conc 34.2 g/dl (31.0-37.0); Mean Corpuscular Hemoglobin 29.5 pg (25.0-35.0); Mean Corpuscular Volume 86 fL (80-100); Monocytes # (Auto) 0.5 Thou/mm3 (0.0-0.8); Monocytes % (Auto) 4 % (0-12); Neutrophils # (Auto) 8.2 Thou/mm3 (1.8-7.7); Neutrophils % (Auto) 73 % (37-80); Nucleated Red Blood Cell # 0.00 Thou/mm3 (0.00-0.00); Nucleated Red Blood Cell % 0 /100 WBC (0); Platelet Count 180 Thou/mm3 (140-440); RDW Standard Deviation 40.5 fL (36.4-46.3); Red Blood Count 4.65 Miln/mm3 (4.00-5.20); White Blood Count 11.3 Thou/mm3 (3.6-11.0)
[2025-05-30 21:37] LABS: INR 1.0 (0.9-1.3); Partial Thromboplastin Time 23.1 Seconds (22.0-36.0); Prothrombin Time 10.6 Seconds (9.0-12.2)
[2025-05-30 21:38] LABS: Alanine Aminotransferase 33 U/L (10-49); Albumin, Serum 4.2 gm/dL (3.5-5.0); Albumin/Globulin Ratio 1.8 (1.2-2.2); Alkaline Phosphatase 77 U/L (46-116); Anion Gap 10 (7-16); Aspartate Amino Transferase 30 U/L (0-34); BUN/Creatinine Ratio 6 Ratio (12-20); Bilirubin,Total 0.6 mg/dL (0.3-1.2); Blood Urea Nitrogen 5 mg/dL (9-23); Calcium 9.6 mg/dL (8.3-10.6); Calcium (Corrected) 9.6 mg/dL (8.5-10.1); Carbon Dioxide 24.7 mMol/L (20.0-31.0); Chloride 104 mMol/L (98-107); Creatinine (Component) 0.8 mg/dL (0.6-1.3); Globulin 2.4 gm/dL (2.3-3.5); Glucose 230 mg/dL (74-106); LDH (Lactate Dehydrogenase) 180 U/L (120-246); Lithium < 0.20 mEq/L (1.00-1.20); Magnesium 1.8 mg/dL (1.6-2.6); Osmolality,Calculated 281 (275-295); Potassium 4.0 mMol/L (3.4-5.1); Sodium 139 mMol/L (136-145); Total Protein 6.6 gm/dL (5.7-8.2); Troponin I < 0.002 ng/mL (0.0-0.045); eGFR > 60 See Note
[2025-05-30 21:44] LABS: B-Type Natriuretic Peptide < 20 pg/mL (0-100)
[2025-05-30 21:58] LABS: Collection Type, Urine Clean Catch
[2025-05-30 22:10] LABS: Amphetamine/Methamp Scrn,U Negative (Negative); Barbiturate Screen,Urine Negative (Negative); Benzodiazepines Screen,Urine Negative (Negative); Benzoylecgonine Screen, Ur Negative (Negative); Fentanyl Screen,Urine Negative (Negative); Opiate Screen,Urine Negative (Negative); THC Screen,Urine Negative (Negative)
[2025-05-30 22:13] VITALS: BP 124/79; PULSE 71; RESP 18; TEMP 37.4; O2SAT 97
[2025-05-30 23:16] LABS: Bacteria,Urine 2+; Bilirubin,Urine Negative (Negative); Blood,Urine Negative (Negative); Budding Yeast,Urine Present; Clarity,Urine Clear (Clear/Hazy); Color,Urine Lt-Yellow (Lt Yel-Yel); Culture Indicated,Urine Yes; Glucose, Urine 4+ (Negative); Hyaline Casts,Urine < 1 /hpf (0-1); Ketones,Urine Negative (Negative); Leukocyte Esterase,Urine Negative (Negative); Nitrite,Urine Negative (Negative); PH,Urine 5.5 (5.0-7.0); Protein,Urine Negative (Neg - Trace); RBC,Urine 1 /hpf (0-3); Specific Gravity,Urine 1.025 (1.001-1.035); Squamous Epithelial Cell,Urine 3 /hpf (0-5); Urobilinogen,Urine Negative mg/dL (0.0-1.0); WBC,Urine 1 /hpf (0-5)
== END 2025-05-30 22:13 | disposition home or self-care (01) ==
LOC: SERX 22:29
PROVIDERS: Registered Nurse General Practice; Emergency Provider Emergency Medicine; PCP Nurse Practitioner
DX: R07.89 Other chest pain (principal); E78.5 Hyperlipidemia, unspecified
CPT/HCPCS: 36415; 71045; 80053; 80178; 80307; 81001; 83615; 83735; 83880; 84484; 85025; 85610; 85730; 87086; 99283